=== PATIENT | male | born 1975 | race Asian ===

== ENCOUNTER 2024-05-17 15:01 | Outpatient (AMB) | payer SELFPAY ==
--- NOTE | 2024-05-17 15:22 | AM.OFFWIN_ITS ---
Intake Vital Signs 05/17/24 15:27 Height 5 ft 9 in BMI Reason not done Patient refused/unable BP 118/78 Blood Pressure Location Rt brachial Position Sitting Pulse 58 Pulse Source Pulse Oximeter Temp 98.8 F Temp Source Oral Pulse Oximetry (%) 98 Intake Visit Reasons: [employer] rash all over the body Patient Tobacco Use Status: Never used Tobacco Allergies No Known Allergies Allergy (Verified 05/17/24 15:25) Do you need a note to return to daycare/school/sports/work: Yes HPI HPI Comments History of Present Illness Details History of Present Illness - The patient is a 48-year-old male pres enting with a rash. - The rash appeared after his friend vis ited [facility] and primarily affects the hands and abdomen. His friend had the rash first. - It is described as very itchy, with no accompanying fever. - He has attempted anti-itch creams with partial relief. - no new meds, food, soaps, detergents o r lotions. - No prior physician consultation for th is condition has been reported. Physical Exam General: Cooperative, healthy appearing, comfortable, no acute distress and well developed Orientation: Patient oriented x3 Limitations: No limitations Head: Normal to inspection Ears: Hearing grossly normal bilaterally Nose: Normal external nose present Face and sinus: normal facial exam Eyes: Appearance normal, both eyes and all related structures Neck: Normal visual inspection and Yes full ROM Respiratory: Normal respiratory effort and able to speak in complete sentences. Skin: erythematous, slightly raised area from left hip to right hip approx 3cm wide, no evidence of any bites, no hives, no crusting, no scaling, no warmth noted. Also on left hand, dorsal aspect in between 2nd and 3rd knuckles has 0.5cm oval area which is raised erythematous raised rash, no evidence of any bites. Neuro: Patient oriented x3 Extremities: Normal to inspection PFSH Social History Patient Tobacco Use Status: Never used Tobacco Review of Systems Const All systems reviewed & are unremarkable except as noted in HPI and below Physical Exam Vital Signs: Last Vital Signs Temp 98.8 F 05/17/24 15:27 Pulse 58 05/17/24 15:27 BP 118/78 05/17/24 15:27 Pulse Ox 98 05/17/24 15:27 Assessment & Plan Assessment & Plan (1) Contact dermatitis: Code(s): L25.9 - Unspecified contact dermatitis, unspecified cause Qualifiers: Contact dermatitis type: irritant Contact dermatitis trigger: unspecified trigger Qualified Code(s): L24.9 - Irritant contact dermatitis, unspecified cause Plan: A suspected cause of the itchy rash, potentially related to a recent visit to [facility] and exposure to a friend's similar condition, is managed with hydroxyzine for symptomatic itching relief, particularly taken at night due to its sedative properties. A prednisone taper is initiated to address inflammation, tapered over 12 days. If symptoms do not improve after 3-4 days of management, further assessment is advised. Establishment with a primary care physician is recommended to assist with ongoing care needs and healthcare management. Patient was informed and verbally consented to the use of an ambient scribe for clinic note documentation during this visit. Medications: New prednisone see taper instructions; 40 mg Daily x3 days, 30 mg daily x3 days, 20 mg daily x3 days, 10 mg daily x3 days 10 mg PO DIRECTED 30 tabs 0RF hydroxyzine HCl 25 mg PO BEDTIME 14 tabs 0RF Coding Level of Care Code New Pt Level 3 (14005) Diagnoses Irritant contact dermatitis, unspecified trigger L24.9 Contact dermatitis type: irritant Contact dermatitis trigger: unspecified trigger
[2024-05-17 15:27] VITALS: BP 118/78; PULSE 58; TEMP 37.1; O2SAT 98
== END 2024-05-17 16:18 | disposition home or self-care (01) ==
PROVIDERS: Visit Provider Physician Assistant
DX: L24.9 Irritant contact dermatitis, unspecified cause (principal)

== ENCOUNTER → 2024-05-17 15:01 | Outpatient (BNVA) | payer SELFPAY | DX: L24.9 Irritant contact dermatitis, unspecified cause (principal) | CPT/HCPCS: 99202 ==

== ENCOUNTER 2024-07-04 12:24 | Outpatient (AMB) | payer SELFPAY ==
[2024-07-04 14:00] VITALS: BP 110/72; PULSE 58; O2SAT 96
--- NOTE | 2024-07-04 14:00 | MHC.OFFWIV ---
Intake Vital Signs 07/04/24 14:00 Weight 184 lb BP 110/72 Blood Pressure Location Lt brachial Position Sitting Pulse 58 Pulse Source Pulse Oximeter Pulse Oximetry (%) 96 Oxygen Delivery Method Room Air Intake Visit Reasons: EP STD Check Intake Note: Patient here for STD chech, itching and bumps that has been present for 3-5 months. Patient Tobacco Use Status: Never used Tobacco Allergies No Known Allergies Allergy (Verified 07/04/24 14:01) Do you need a note to return to daycare/school/sports/work: No HPI HPI Comments History of Present Illness Details History of Present Illness - The patient is a 48-year-old male presenting with a persistent rash, new rash and concern for possible sexually transmitted infection (STI) exposure. - Previously treated for contact dermatitis with prednisone and hydroxyzine, the rash spanning from hip to hip proved resistant, while the accompanying rash on the hand resolved. He also has a new rash on his genitals that is not itchy. Denies fevers. - The hip rash has intermittent itchiness, partially managed with [id number] hydrocortisone cream. - The patient anticipates STI exposure, particularly chlamydia, after learning his girlfriend tested positive and received treatment yesterday. He seeks verification of his STI status, having no identifiable symptoms himself. Denies penile pain, abnormal discharge or blood. Physical Exam General: Cooperative, healthy appearing, comfortable, no acute distress and well developed Orientation: Patient oriented x3 Limitations: No limitations Head: Normal to inspection Ears: Hearing grossly normal bilaterally Nose: Normal External nose present Face and sinus: Normal facial exam Eyes: Appearance normal, both eyes and all related structures Neck: Normal visual inspection and Yes full ROM Respiratory: Normal respiratory effort and able to speak in complete sentences. Skin: see below Neuro: Patient oriented x3 Extremities: Normal to inspection [facility] Social History Patient Tobacco Use Status: Never used Tobacco Review of Systems Const All systems reviewed & are unremarkable except as noted in HPI and below Physical Exam Vital Signs: Last Vital Signs Pulse 58 07/04/24 14:00 BP 110/72 07/04/24 14:00 Pulse Ox 96 07/04/24 14:00 Oxygen Delivery Method Room Air 07/04/24 14:00 Skin Rashes: rashes noted (abdomen has dry slightly raised maculopapular rash swath L hip to umbilicus) and other (flat areas of erythema on underside L testicle & penis base of shaft) Assessment & Plan Assessment & Plan (1) Contact dermatitis: Code(s): L25.9 - Unspecified contact dermatitis, unspecified cause Qualifiers: Contact dermatitis type: irritant Contact dermatitis trigger: unspecified trigger Qualified Code(s): L24.9 - Irritant contact dermatitis, unspecified cause Plan: We have initiated treatment with a prescription-strength topical steroid cream to target the persistent rash on the patient's hips. Patient was informed and verbally consented to the use of an ambient scribe for clinic note documentation during this visit. (2) Exposure to chlamydia: Code(s): Z20.2 - Contact with and (suspected) exposure to infections with a predominantly sexual mode of transmission Plan: Diagnostic testing for chlamydia is underway, given the patient's recent exposure risk. Upon positive confirmation, relevant antibiotic treatment will be prescribed. The patient has been advised to abstain from sexual contact until absolute clearance is confirmed post-treatment for both him and his partner. Comprehensive therapy aims to alleviate present symptoms while preventing further transmission risks associated with possible STI exposure. (3) Tinea cruris: Code(s): B35.6 - Tinea cruris Plan: Prescribed clotrimazole cream for potential fungal involvement in rash on base of penis and left testicle. Orders: Orders CT NG by PCR Today Z20.2 - Contact with and (suspected) exposure to infections with a predominantly sexual mode of transmission Medications: New triamcinolone acetonide 0.1% 1 appl topical BID 30 grams 0RF clotrimazole 1% 1 appl topical bid 2 weeks 30 grams 0RF Coding Level of Care Code New Pt Level 3 (88743) Diagnoses Irritant contact dermatitis, unspecified trigger L24.9 Contact dermatitis type: irritant Contact dermatitis trigger: unspecified trigger Exposure to chlamydia Z20.2 Tinea cruris B35.6
== END 2024-07-04 14:20 | disposition home or self-care (01) ==
PROVIDERS: Visit Provider Physician Assistant
DX: B35.6 Tinea cruris (principal); L24.9 Irritant contact dermatitis, unspecified cause; Z20.2 Contact with and (suspected) exposure to infections with a predominantly sexual mode of transmission

== ENCOUNTER 2024-07-04 12:24 | Outpatient (REF) | payer SELFPAY ==
[2024-07-05 06:12] LABS: CT PCR NOT DETECTED (Not Detect.); NG PCR NOT DETECTED (Not Detect.)
== END 2024-07-04 12:25 | disposition home or self-care (01) ==
LOC: HO.LAB 12:24
PROVIDERS: Physician Assistant
DX: L24.9 Irritant contact dermatitis, unspecified cause (principal); B35.6 Tinea cruris; Z20.2 Contact with and (suspected) exposure to infections with a predominantly sexual mode of transmission
CPT/HCPCS: 87491; 87591; 99212